=== PATIENT | female | born 1960 | race African-American/Black ===

== ENCOUNTER 2016-11-24 15:40 | Emergency (ER) | payer OTHER ==
[~2016-11-24] VITALS: Ht 172.7 cm; Wt 63.0 kg
[~2016-11-24 15:40] MED LIST: CRES20TA PO; HYDR-2768 PO
[2016-11-24 15:42] VITALS: BP 160/91; PULSE 98; RESP 16; TEMP 98.4; O2SAT 97
--- NOTE | 2016-11-24 17:44 | PD ---
HPI Chief Complaint: Chest Pain Time Seen by Provider: 17:43 Travel History International Travel<30 days: No Contact w/Intl Traveler<30days: No Traveled to known affect area: No History of Present Illness HPI 56-year-old female presents to the emergency department for evaluation. Patient states that she struck her nose 2 days ago and then today she struck her forehead [place] at the airport. She then had a taste of iron in her mouth and when she spit out saliva she noticed blood. She did not get on her flight brother came to the emergency department for evaluation. Patient reports no chest pain or tenderness. No difficulty breathing. No shortness of breath. No focal deficits or weakness. No nausea or vomiting. She has no other symptoms to report. [facility] Past Medical History Medical History: Denies Significant Hx Social History Tobacco Use: No Allergies-Medications (Allergen,Severity, Reaction): Coded Allergies: Naprosyn (Verified Allergy, Mild, Hives, 11/24/16) Reported Meds & Prescriptions Reported Meds & Active Scripts Active Reported Hctz (Hydrochlorothiazide) 25 Mg Tab 25 Mg PO DAILY Crestor (Rosuvastatin Calcium) 20 Mg Tab 20 Mg PO HS Review of Systems Except as stated in HPI: all other systems reviewed are Neg Physical Exam Narrative GENERAL: Well-nourished female patient, ambulatory no acute distress SKIN: Warm and dry. HEAD: Slight bruising of the nasal bridge. No deformity. Normocephalic. EYES: Pupils equal and round. No scleral icterus. No injection or drainage. EOMI. PERRLA ENT: No nasal bleeding or discharge. Mucous membranes pink and moist. Dry crusted blood in the left posterior naris. No septal hematoma. NECK: Trachea midline. No JVD. CARDIOVASCULAR: Regular rate and rhythm. No murmur appreciated. RESPIRATORY: No accessory muscle use. Clear to auscultation. Breath sounds equal bilaterally. GASTROINTESTINAL: Abdomen soft, non-tender, nondistended. Hepatic and splenic margins not palpable. MUSCULOSKELETAL: No obvious deformities. No clubbing. No cyanosis. No edema. NEUROLOGICAL: Awake and alert. No obvious cranial nerve deficits. Motor grossly within normal limits. Normal speech. PSYCHIATRIC: Appropriate mood and affect; insight and judgment normal. Data Data Last Documented VS Vital Signs Date Time Temp Pulse Resp B/P Pulse Ox O2 Delivery O2 Flow Rate FiO2 11/24/16 15:42 98.4 98 16 160/91 97 Room Air Orders Electrocardiogram (11/24/16 ) Ct Facial Bones W/O Iv Cont (11/24/16 ) Ct Brain W/O Iv Contrast(Rout) (11/24/16 ) MDM Medical Decision Making Medical Screen Exam Complete: Yes Emergency Medical Condition: Yes Medical Record Reviewed: Yes Differential Diagnosis Epistaxis versus closed head injury versus facial fracture versus contusion Narrative Course 56 year-old female presents to the emergency department for evaluation. Patient appears overall well and without distress. CT imaging of the facial bones and brain are without acute abnormality. I've advised the patient that it is safe for her to fly based on these results of her injury. She is discharged care instructions. She agrees to return immediately with any acute worsening of symptoms. Diagnosis Primary Impression: Facial contusion Qualified Code: S00.83XA - Facial contusion, initial encounter Additional Impression: Mild epistaxis Referrals: Primary Care Physician Patient Instructions: Facial Contusion (ED), General Instructions Additional Instructions: Ice to the affected area Follow-up with primary care provider Return immediately to the emergency department with any acute worsening of symptoms Med/Other Pt SpecificInfo: No Change to Meds Disposition: 01 DISCHARGE HOME Condition: Stable HoodDayna stern LYLE Nov 24, 2016 17:44
--- NOTE | 2016-11-24 18:19 | RADRPT ---
EXAM DATE/TIME: 11/24/2016 17:57 [facility] COMPARISON: No previous studies available for comparison. INDICATIONS : Hit head on car door frontal pain. RADIATION DOSE: 43.92 CTDIvol (mGy) MEDICAL HISTORY : None SURGICAL HISTORY : None. ENCOUNTER: Initial ACUITY: 1 day PAIN SCALE: 5/10 LOCATION: cranial TECHNIQUE: Multiple contiguous axial images were obtained of the head. Using automated exposure control and adj ustment of the mA and/or kV according to patient size, radiation dose was kept as low as reasonably a chievable to obtain optimal diagnostic quality images. FINDINGS: CEREBRUM: The ventricles are normal for age. No evidence of midline shift, mass lesion, hemorrhage or acute in farction. No extra-axial fluid collections are seen. POSTERIOR FOSSA: The cerebellum and brainstem are intact. The 4th ventricle is midline. The cerebellopontine angle i s unremarkable. EXTRACRANIAL: The visualized portion of the orbits is intact. SKULL: The calvaria is intact. No evidence of skull fracture. CONCLUSION: Normal examination for a patient of this age. Salazar Orozco MD on November 24, 2016 at 18:17 Board Certified Radiologist. This report was verified electronically.
--- NOTE | 2016-11-24 18:21 | RADRPT ---
EXAM DATE/TIME: 11/24/2016 17:57 [facility] COMPARISON: No previous studies available for comparison. INDICATIONS : Hit head on car door,face pain RADIATION DOSE: 37.76 CTDIvol (mGy) MEDICAL HISTORY : None SURGICAL HISTORY : None. ENCOUNTER: Initial ACUITY: 1 day PAIN SCORE: 5/10 LOCATION: facial TECHNIQUE: Volumetric scanning of the facial bones was performed. Using automated exposure control and adjustme nt of the mA and/or kV according to patient size, radiation dose was kept as low as reasonably achiev able to obtain optimal diagnostic quality images. FINDINGS: ORBITS: The orbital and infraorbital osseous structures are intact. The retroconal structures have a normal configuration. No radiopaque foreign bodies are seen. NASAL BONE: The nasal bone and maxillary spine are intact ZYGOMATIC ARCHES: Symmetric without evidence of fracture. SINUSES: The maxillary, ethmoid and frontal sinuses are intact. No air-fluid levels seen. NASAL CAVITY: The nasal septum is intact and midline. The lacrimal ducts are intact. SOFT TISSUES: No radiopaque foreign bodies seen. No soft-tissue swelling is seen. INTRACRANIAL: No intracranial air seen. CRIBIFORM PLATE: Grossly intact. CONCLUSION: Normal examination for a patient of this age. Salazar Orozco MD on November 24, 2016 at 18:18 Board Certified Radiologist. This report was verified electronically.
== END 2016-11-24 19:30 | disposition home or self-care (01) ==
LOC: NETRI 15:40
DX: S00.83XA Contusion of other part of head, initial encounter (principal); R04.0 Epistaxis; W22.8XXA Striking against or struck by other objects, initial encounter; Y92.520 Airport as the place of occurrence of the external cause
CPT/HCPCS: 70450; 70486

== ENCOUNTER 2018-02-28 08:25 | Emergency (ER) | payer OTHER ==
[~2018-02-28] VITALS: Ht 172.7 cm; Wt 60.0 kg
[2018-02-28 08:27] VITALS: BP 141/71; PULSE 70; RESP 18; TEMP 97.4; O2SAT 100
[2018-02-28] MEDS ORDERED: PRED10PA PO (08:42)
--- NOTE | 2018-02-28 08:46 | PD ---
HPI Chief Complaint: Skin Problem Time Seen by Provider: 08:36 Travel History International Travel<30 days: No Contact w/Intl Traveler<30days: No Traveled to known affect area: No History of Present Illness HPI 57-year-old -[place] female presents emergency department with itchy raised red areas on the upper lower extremities and a few on the trunk since sleeping at her sister's house last evening. Patient is wondering what it could be. She denies any other acute exposures or changes in her diet. She has no fever, chills, or recent illness. Patient states he has had similar reactions to bedbug bites in the past. Her biggest complaint is pruritus. She has no pain. She has no difficulty swallowing, breathing, or wheezing. She has allergies to naproxen. [facility] Social History Tobacco Use: No Allergies-Medications (Allergen,Severity, Reaction): Coded Allergies: naproxen (Unverified Allergy, Mild, Hives, 06/16/17) Reported Meds & Prescriptions Reported Meds & Active Scripts Active Reported Hctz (Hydrochlorothiazide) 25 Mg Tab 25 Mg PO DAILY Crestor (Rosuvastatin Calcium) 20 Mg Tab 20 Mg PO HS Review of Systems Except as stated in HPI: all other systems reviewed are Neg General / Constitutional: No: Fever Eyes: No: Visual changes HENT: No: Headaches Cardiovascular: No: Chest Pain or Discomfort Respiratory: No: Shortness of Breath Gastrointestinal: No: Abdominal Pain Genitourinary: No: Dysuria Musculoskeletal: No: Pain Skin: Positive Itching, Positive Lesions (See history of present illness), No Rash Neurologic: No: Weakness Psychiatric: No: Depression Endocrine: No: Polydipsia Hematologic/Lymphatic: No: Easy Bruising Physical Exam Narrative GENERAL: Patient appears in mild distress per SKIN: Warm and dry. Normal color. Normal turgor. Patient has multiple small erythematous raised lesions consistent with insect bites which are pruritic. There is no sign of abscess or cellulitis. HEAD: Atraumatic. Normocephalic. EYES: Pupils equal and round. No scleral icterus. No injection or drainage. ENT: No nasal bleeding or discharge. Mucous membranes pink and moist. Pharynx is clear. Airways patent. NECK: Trachea midline. Supple and nontender. CARDIOVASCULAR: Regular rate and rhythm. RESPIRATORY: No accessory muscle use. Clear to auscultation. Breath sounds equal bilaterally. MUSCULOSKELETAL: Extremities without clubbing, cyanosis, or edema. No obvious deformities. NEUROLOGICAL: Awake and alert. No obvious cranial nerve deficits. Motor grossly within normal limits. Five out of 5 muscle strength in the arms and legs. Normal speech. PSYCHIATRIC: Appropriate mood and affect; insight and judgment normal. Data Data Last Documented VS Vital Signs Date Time Temp Pulse Resp B/P (MAP) Pulse Ox O2 Delivery O2 Flow Rate FiO2 02/28/18 08:27 97.4 70 18 141/71 (94) 100 Orders Orders Prednisone (Deltasone) (02/28/18 09:00) [facility] Medical Decision Making Medical Screen Exam Complete: Yes Emergency Medical Condition: Yes Differential Diagnosis Pruritus. Rash. Insect bites. Narrative Course Patient has reaction to bedbug bites in my opinion. Patient is artery taking Benadryl prior to arrival. Patient is given prednisone 40 mg p.o. now. Patient is to continue prednisone Dosepak as prescribed. Patient can continue Benadryl as needed. Patient is recommended to use Caladryl topically to the lesions as needed. Patient should avoid further contact with bedbugs. Diagnosis Primary Impression: Bedbug bite Qualified Codes: W57.XXXA - Bitten or stung by nonvenomous insect and other nonvenomous arthropods, initial encounter Patient Instructions: General Instructions, Insect Bite or Sting (ED) Additional Instructions: Patient has reaction to bedbug bites in my opinion. Patient is artery taking Benadryl prior to arrival. Patient is given prednisone 40 mg p.o. now. Patient is to continue prednisone Dosepak as prescribed. Patient can continue Benadryl as needed. Patient is recommended to use Caladryl topically to the lesions as needed. Patient should avoid further contact with bedbugs. Med/Other Pt SpecificInfo: Prescription(s) given Scripts Prednisone (21) 10 mg tab Dose Pack (Prednisone (21) 10 mg tab Dose Pack) 10 Mg Pack 10 MG PO DIRECTED for Inflammation, #1 DSPK 0 Refills Prov: Ede Goldsmith MD 02/28/18 Disposition: 01 DISCHARGE HOME Condition: Stable John Lipscomb Feb 28, 2018 08:46
[2018-02-28] MEDS ORDERED: predniSONE 20 MG TAB PO SCH (09:00)
== END 2018-02-28 09:07 | disposition home or self-care (01) ==
LOC: NEPD 08:25
DX: S80.862A Insect bite (nonvenomous), left lower leg, initial encounter (principal); S80.861A Insect bite (nonvenomous), right lower leg, initial encounter; S40.862A Insect bite (nonvenomous) of left upper arm, initial encounter; S40.861A Insect bite (nonvenomous) of right upper arm, initial encounter; W57.XXXA Bitten or stung by nonvenomous insect and other nonvenomous arthropods, initial encounter
CPT/HCPCS: 99283; J7512